=== PATIENT | male | born 1985 | race Two or more races ===

== ENCOUNTER → 2024-07-23 | Outpatient (CLI) | payer OTHER ==
--- NOTE | 2024-07-23 08:55 | DVH ---
EXAM: CT CHST AB PEL WO CON-NO IV/ORAL History: SEVERAL NEW MASSES VISIBLE ON CHEST AND ABDOMEN Comparison Study: None available at time of dictation. TECHNIQUE: Multidetector CT of the chest, abdomen and pelvis was performed from lower neck to pubic s ymphysis without the use of intravenous contrast. Coronal and sagittal multiplanar reformats were per formed by the technologist on a separate workstation. Radiation Dose Information: CT Dose: CTDI volume is 11.81 mGy. Dose-length product is 894.09 mGy*cm FINDINGS: Evaluation is limited without intravenous contrast. Lower neck: Normal thyroid. Lungs: No focal consolidation, suspicious pulmonary nodules or pulmonary masses. Pleura: No pleural effusion or significant pneumothorax. Central airways: Patent. Esophagus: Unremarkable. Heart/Vascular Structures: Normal heart size. There are coronary artery calcifications. The thoracic aorta and main pulmonary artery are normal in caliber. Lymph Nodes: No adenopathy. Liver: The liver is normal in size. Non-contrast appearance of liver. Gallbladder and Biliary Tree: Surgically absent gallbladder. No biliary ductal dilatation.. Spleen: Unremarkable. Pancreas: Unremarkable. Adrenal Glands: Unremarkable. Kidneys: No renal calculi or hydronephrosis. Bladder: Unremarkable. Stomach and bowel: The stomach is unremarkable. Sigmoid diverticulosis without acute diverticulitis. No bowel wall thickening or dilatation. The appendix is normal in caliber. Peritoneum: No ascites or pneumoperitoneum. Lymph nodes: No enlarged lymph nodes. Vasculature: The visualized abdominal aorta is normal in size and caliber. Evaluation of the vascular structures is limited due to lack of intravenous contrast. Pelvic Organs: Prostate and seminal vesicles are unremarkable.. Musculoskeletal: No acute osseous abnormality. Soft tissues: Fat containing left inguinal hernia. There is an 8 mm soft tissue nodule in the right a nterior abdominal subcutaneous tissues. There is ar 7.1 by 1.8 cm (transverse by AP) fatty lesion in the inferior left chest wall compatible with a lipoma. Bilateral gynecomastia. IMPRESSION: 1. No acute process or suspicious mass within the chest, abdomen or pelvis. 2. Left chest wall benign lipoma. Indeterminate 8 mm soft tissue nodule in the right anterior abdomi nal subcutaneous soft tissues. If this corresponds to an area of palpable abnormality, a targeted ul trasound may be obtained. All CT scans at this medical facility are performed using dose modulation techniques as appropriate t o a performed exam including the following: Automated exposure control was utilized; adjustment of th e MA and/or KV according to patient size; and use of iterative reconstruction technique.
== END | disposition home or self-care (01) ==
LOC: EEVIPCON 08:02 → CT 08:02
DX: R91.1 Solitary pulmonary nodule (principal); D17.79 Benign lipomatous neoplasm of other sites; K40.90 Unilateral inguinal hernia, without obstruction or gangrene, not specified as recurrent
CPT/HCPCS: 71250; 74176